=== PATIENT | female | born 1950 | race Caucasian/White ===

== ENCOUNTER 2016-12-25 10:27 | Outpatient (CLI) | payer OTHER, MEDICAID | END 2016-12-25 18:16 | disposition home or self-care (01) | LOC: SRD 10:27 | PROVIDERS: ATTEND Family Medicine | DX: R91.8 Other nonspecific abnormal finding of lung field (principal); Z87.891 Personal history of nicotine dependence | CPT/HCPCS: 71020-TC ==

== ENCOUNTER 2018-05-10 15:51 | Emergency (ER) | payer MEDICARE, MEDICAID ==
[~2018-05-10] VITALS: Ht 167.6 cm; Wt 69.9 kg
[2018-05-10 16:02] VITALS: BP_SYST 131
[2018-05-10] MEDS ORDERED: LORazepam 1 MG TABLET PO ONE (19:00)
[2018-05-10 19:18] VITALS: BP_SYST 122
== END 2018-05-10 19:19 | disposition home or self-care (01) ==
LOC: SED 15:51
DX: F41.0 Panic disorder [episodic paroxysmal anxiety] (principal); E78.00 Pure hypercholesterolemia, unspecified
CPT/HCPCS: 99283; 99284

== ENCOUNTER 2018-06-08 09:37 | Emergency (ER) | payer MEDICARE, MEDICAID ==
[~2018-06-08] VITALS: Ht 167.6 cm; Wt 68.9 kg
[2018-06-08 09:42] VITALS: BP_SYST 135
[2018-06-08] MEDS ORDERED: LORazepam 2 MG/ML VIAL (FOR ER USE) IM ONE (10:00)
== END 2018-06-08 10:17 | disposition home or self-care (01) ==
LOC: SED 09:37
DX: F41.9 Anxiety disorder, unspecified (principal); Z91.030 Bee allergy status
CPT/HCPCS: 96374; 99284; J2060